=== PATIENT | male | born 1970 | race Caucasian/White ===

== ENCOUNTER 2024-12-10 12:01 | Emergency (ER) | payer OTHER ==
[~2024-12-10 12:01] MED LIST: Iopamidol-370 76% 500 ML MDV (1 ML CHARGE) ONE
[2024-12-10 13:01] LABS: Hematocrit 26.8 % (42.0-52.0); Hemoglobin 8.7 g/dL (14.0-18.0); Mean Corpuscular Hemoglobin 28.7 pg (27.0-31.0); Mean Corpuscular Volume 88.4 fL (78.0-98.0); Platelet Count 119 10x3/uL (130-400); Red Blood Cell (RBC) Count 3.03 mill/uL (4.70-6.10); White Blood Cell (WBC) Count 8.54 10x3/uL (4.8-10.8)
[2024-12-10 13:21] LABS: Macrocytosis SLIGHT = 6-15 cells HPF (0-5); Ovalocytes SLIGHT = 2-5 cells HPF (0-1); Platelet Adequacy Comment Platelets Decreased; Polychromasia SLIGHT = 2-3 cells HPF (0-2); Smudge Cells 3.8 %
[2024-12-10 13:25] LABS: ALT (SGPT) 85 U/L (Less than 45); AST (SGOT) 51 U/L (11-34); Albumin 4.0 g/dL (3.1-4.5); Alkaline Phosphatase 124 U/L (40-110); Anion Gap 13 mmol/L (10-20); BUN (Urea Nitrogen) 20 mg/dL (8.4-25.7); Bilirubin, Total 0.2 mg/dL (0.3-1.2); Calc. Creatinine Clearance 0 mL/min (70-130); Calcium 8.8 mg/dL (7.8-10.44); Carbon Dioxide 23 mmol/L (22-29); Chloride 103 mmol/L (98-107); Globulin 2.2 g/dL (2.4-3.5); Glucose 150 mg/dL (70-105); Magnesium 1.3 mg/dL (1.6-2.6); Potassium 3.4 mmol/L (3.5-5.1); Sodium 136 mmol/L (136-145)
[2024-12-10 13:48] LABS: INR-International Normal Ratio 1.0; Prothrombin Time 13.0 sec (12.0-14.7)
[2024-12-10 13:49] LABS: PTT 24.3 sec (22.9-36.1)
[2024-12-10] MEDS ORDERED: Magnesium 2 GM/50 ML BAG (IN WATER) ONE (14:39)
[2024-12-10] MEDS ORDERED: Potassium Bicarbonate/Cit Ac 20 MEQ TAB ONE (14:39)
== END 2024-12-10 17:15 | disposition home or self-care (01) ==
LOC: ERS 12:01
DX: E87.6 Hypokalemia (principal); E83.42 Hypomagnesemia; D64.9 Anemia, unspecified; G45.9 Transient cerebral ischemic attack, unspecified; I10 Essential (primary) hypertension; C61 Malignant neoplasm of prostate; Z79.899 Other long term (current) drug therapy
CPT/HCPCS: 36416; 70450; 70496; 70498; 71045; 80053; 83735; 84443; 84484; 85025; 85610; 85730; 93005; 96374; J3475; Q9967